=== PATIENT | male | born 1970 | race African-American/Black ===

== ENCOUNTER 2019-06-08 13:23 | Emergency (ER) | payer SELFPAY ==
[2019-06-08] MEDS ORDERED: Hydrochlorothiazide 25 MG Tab PO ONE (13:52)
--- NOTE | 2019-06-08 13:57 | EDM.PDOC ---
ED HPI GENERAL MEDICAL PROBLEM - General Chief Complaint: Cardiovascular Problem Stated Complaint: HIGH BLOOD PRESSURE Time Seen by Provider: 06/08/19 13:34 Source of Information: Reports: Patient History Limitations: Reports: No Limitations - History of Present Illness INITIAL COMMENTS - FREE TEXT/NARRATIVE: 49 y/o M sent here from [facility] for high blood pressure. His BP was screened there and noted to be very high. Initially went to [facility], sent here. He has no additional complaint. Had hx of HTN, was previously on HCTZ and amlodipine, self-dc'd these meds, hasn't been on meds in years. Feels fine. No CP/SOB. No headache. No weakness/confusion. No difficulty urinating. No recent illness. Generally feels well. No local PCP, has f/u in [place] home state next [place]. - Related Data Allergies Allergy/AdvReac Type Severity Reaction Status Date / Time No Known Allergies Allergy Verified 06/08/19 13:36 Home Meds: Home Meds Hydrochlorothiazide [Microzide] 25 mg PO DAILY #30 capsule 06/08/19 [Rx] Past Medical History Cardiovascular History: Reports: Hypertension Social & Family History - Tobacco Use Smoking Status *Q: Never Smoker - Recreational Drug Use Recreational Drug Use: No ED ROS GENERAL - Review of Systems Review Of Systems: See Below Constitutional: Denies: Fever HEENT: Reports: No Symptoms Respiratory: Denies: Shortness of Breath Cardiovascular: Denies: Chest Pain Endocrine: Reports: No Symptoms GI/Abdominal: Denies: Abdominal Pain : Reports: No Symptoms Musculoskeletal: Reports: No Symptoms Skin: Reports: No Symptoms Neurological: Reports: No Symptoms. Denies: Headache Psychiatric: Reports: No Symptoms Hematologic/Lymphatic: Reports: No Symptoms ED EXAM, GENERAL - Physical Exam Exam: See Below Exam Limited By: No Limitations General Appearance: Alert, WD/WN, No Apparent Distress Eye Exam: Bilateral Eye: Normal Inspection Ears: Normal External Exam Nose: Normal Inspection Throat/Mouth: Normal Inspection, Normal Oropharynx, Normal Voice, No Airway Compromise Head: Atraumatic, Normocephalic Neck: Normal Inspection, Supple Respiratory/Chest: No Respiratory Distress, Lungs Clear, Normal Breath Sounds, Chest Non-Tender Cardiovascular: Normal Peripheral Pulses, Regular Rate, Rhythm, No Murmur GI/Abdominal: Soft, Non-Tender, No Distention. No: Rebound Back Exam: Normal Inspection Extremities: Normal Inspection, No Pedal Edema Neurological: Alert, Oriented, Normal Cognition, No Motor/Sensory Deficits Psychiatric: Normal Affect, Normal Mood Skin Exam: Warm, Dry, Intact, Normal Color, No Rash Course - Vital Signs Last Recorded V/S: Last Vital Signs Temp 36.6 C 06/08/19 13:34 Pulse 72 06/08/19 13:34 Resp 16 06/08/19 13:34 BP 218/116 H 06/08/19 13:34 Pulse Ox 98 06/08/19 13:34 - Orders/Labs/Meds Meds: Medications Discontinued Medications Generic Name Dose Route Start Last Admin Trade Name Freq PRN Reason Stop Dose Admin Hydrochlorothiazide 25 mg 06/08/19 13:52 06/08/19 14:03 Hydrochlorothiazide PO 06/08/19 13:53 25 mg ONETIME ONE Administration - Re-Assessments/Exams Free Text/Narrative Re-Assessment/Exam: 06/08/19 13:54 Patient is quite hypertensive here, likely chronic. He has no additional complaint. No headache, no neuro deficit, no CP, no HTN. Therefore no studies indicated as this is asymptomatic hypertension. Will start HCTZ, advised him to keep a log as he will likely require additional medication. Advised to f/u with PCP in 5-7 days, gave him number for clinic here. Discussed ED return precautions. Departure - Departure Time of Disposition: 13:55 Disposition: Home, Self-Care 01 Clinical Impression: Hypertension Qualifiers: Hypertension type: unspecified Qualified Code(s): I10 - Essential (primary) hypertension Prescriptions: Hydrochlorothiazide [Microzide] 25 mg PO DAILY #30 capsule Instructions: Hypertension Referrals: PCP,None [Primary Care Provider] - Forms: ED Department Discharge Additional Instructions: 1. Take hydrochlorithiazide as prescribed. 2. Try to check your blood pressure daily and keep a log. 3. Follow up with a regular doctor or Saturday if possible. Call [phone] if you'd like to schedule here. 4. Return to the ED if you have chest pain, shortness of breath, headache, confusion, or any other concerning symptoms.
== END 2019-06-08 14:20 | disposition home or self-care (01) ==
LOC: JD.ED 13:23
DX: I10 Essential (primary) hypertension (principal); Z79.899 Other long term (current) drug therapy
CPT/HCPCS: 99283; A9270